=== PATIENT | male | born 1965 | race African-American/Black ===

== ENCOUNTER 2022-06-26 08:21 | Inpatient (IN) | payer OTHER ==
[~2022-06-26] VITALS: Ht 172.7 cm; Wt 100.7 kg
[2022-06-26] MEDS ORDERED: MORPHINE SULFATE 4 MG/ML CPJ (NOT FOR IM USE) IV NR (09:45)
[2022-06-26 09:46] LABS: CHLORIDE 110 mEq/L (98-107)
[2022-06-26 09:52] LABS: BASOPHILS % 0.4 % (0.0-2.0); HEMATOCRIT. 39.5 % (42.0-52.0); LYMPHOCYTES % 23.3 % (20.0-50.0); MEAN CORPUSCULAR HEMOGLOBIN 29.5 pg (28.0-32.0); MEAN CORPUSCULAR VOLUME 89.5 fL (80.0-94.0); MEAN PLATELET VOLUME 7.5 fl (7.4-10.4); MONOCYTES % 7.4 % (2.0-8.0); NEUTROPHILS % 65.9 % (40.0-76.0); PLATELET 246 x1000/uL (130-400); RED BLOOD CELL COUNT 4.42 mill/uL (4.7-6.1); RED CELL DISTRIBUTION WIDTH 13.4 % (11.6-14.6)
[2022-06-26] MEDS ORDERED: LORAZEPAM 2MG/ML CPJ IV SCH (11:30)
[2022-06-26] MEDS ORDERED: TRAMADOL 50MG TABLET PO NR (11:30)
[2022-06-26] MEDS ORDERED: CLONIDINE 0.2MG TABLET PO ONE (11:30)
[2022-06-26] MEDS ORDERED: KETOROLAC 30MG/ML VIAL IV SCH (11:30)
[2022-06-26] MEDS ORDERED: NITROGLYCERIN OINT 1GM/INCH UDPKT TD SCH (11:30)
[2022-06-26 21:00] VITALS: BP 127/86
[2022-06-26] MEDS ORDERED: ENOXAPARIN 40MG/0.4ML SYR SUBCUT SCH (22:00)
[2022-06-27] VITALS: BP 129/65
[2022-06-27] MEDS ORDERED: METOPROLOL TARTRATE 25MG TABLET PO NR ×2 (00:15→09:00)
[2022-06-27] MEDS: PANTOPRAZOLE 40MG DR TABLET PO SCH ×2 (00:54→06:55)
[2022-06-27] MEDS ORDERED: ENOXAPARIN 60MG/0.6ML SYR SUBCUT NR (01:45)
[2022-06-27 04:00] VITALS: BP 121/68
[2022-06-27 07:29] LABS: PROTHROMBIN TIME 11.2 sec (9.6-11.0)
[2022-06-27 08:00] VITALS: BP 141/81
[2022-06-27] MEDS ORDERED: ASPIRIN 81MG TABLET PO SCH (09:00)
[2022-06-27] MEDS ORDERED: ENOXAPARIN 100MG/ML SYR SUBCUT SCH (10:00)
[2022-06-27] MEDS ORDERED: METOPROLOL TARTRATE 5MG/5ML VIAL IV NR (10:00)
[2022-06-27] MEDS ORDERED: MORPHINE SULFATE 2 MG/ML CPJ (NOT FOR IM USE) IV PRN (10:15)
[2022-06-27] MEDS ORDERED: NITROGLYCERIN SPRAY/4.9GM CAN TL NR (11:00)
[2022-06-27 12:00] VITALS: BP 116/82
[2022-06-27] MEDS ORDERED: HEPARIN 1,000 UNITS PREMIX 0 ML IV ONE (13:41)
[2022-06-27] MEDS ORDERED: IODIXANOL 320MG/ML 100 ML BOTTLE IV ONE (13:41)
[2022-06-27] MEDS ORDERED: FENTANYL CITRATE/PF 50MCG/ML 2ML VIAL ONE (13:42)
[2022-06-27] MEDS ORDERED: MIDAZOLAM HCL 2 MG/2 ML VIAL ONE (13:42)
[2022-06-27] MEDS ORDERED: LIDOCAINE HCL/PF 1% 10 MG/ML 5ML VIAL ONE (13:42)
[2022-06-27] MEDS ORDERED: HEPARIN 1000 UNITS/ML 10ML ONE (13:42)
[2022-06-27] MEDS ORDERED: IOHEXOL-350 100 ML BOTTLE ONE (14:34)
[2022-06-27 16:00] VITALS: BP 134/82
[2022-06-27 16:59] LABS: CLARITY URINE CLEAR (CLEAR); COLOR URINE YELLOW (YELLOW); KETONES URINE NEGATIVE (NEGATIVE); LEUKOCYTE ESTERASE URINE NEGATIVE (NEGATIVE); NITRITE URINE NEGATIVE (NEGATIVE); OCCULT BLOOD URINE NEGATIVE (NEGATIVE); PH URINE 6.5 (4.5-8.0); PROTEIN URINE NEGATIVE (NEGATIVE); SPECIFIC GRAVITY URINE 1.072 (1.005-1.030); UROBILINOGEN URINE 0.2 E.U./dL (0.2-1.0)
[2022-06-27 17:08] VITALS: BP 134/82
[2022-06-27 17:18] LABS: *AMPHETAMINES SCREEN URINE NEGATIVE (NEGATIVE); *BARBITURATES SCREEN URINE NEGATIVE (NEGATIVE); *BENZODIAZEPINES SCREEN URINE NEGATIVE (NEGATIVE); *COCAINE SCREEN URINE NEGATIVE (NEGATIVE); CANNABINOID URINE SCREEN NEGATIVE (NEGATIVE); METHADONE URINE SCREEN NEGATIVE (NEGATIVE); OPIATES URINE SCREEN NEGATIVE (NEGATIVE); PHENCYCLIDINE URINE SCREEN NEGATIVE (NEGATIVE)
[2022-06-28] MEDS ORDERED: FAMOTIDINE 20MG TABLET PO SCH (09:00)
== END 2022-06-27 16:16 | disposition short-term general hospital (02) | DRG 190 ==
LOC: ER 08:21 → 8WST 17:29 → EDBEDREQ 17:32 → EDBEDREQTM 17:32 → ENRESERV 18:16
PROVIDERS: ADMIT Internal Medicine; ATTEND Internal Medicine
DX: I21.4 Non-ST elevation (NSTEMI) myocardial infarction (principal); E66.9 Obesity, unspecified; I10 Essential (primary) hypertension; Z20.822 Contact with and (suspected) exposure to COVID-19; R07.2 Precordial pain; R79.89 Other specified abnormal findings of blood chemistry; Z68.33 Body mass index [BMI] 33.0-33.9, adult; Z82.49 Family history of ischemic heart disease and other diseases of the circulatory system; Z91.14 Patient's other noncompliance with medication regimen
CPT/HCPCS: 36415; 71045; 71275; 75571; 80053; 80305; 81003; 84484; 85025; 85379; 87426; 93005; 93306; 93970; 99285; C9803; J1644; J1650; J1885; J2060; J2250; J2270; J3010; J3490; Q9967